=== PATIENT | female | born 1970 | race Caucasian/White ===

== ENCOUNTER 2018-09-01 16:36 | Emergency (ER) | payer SELFPAY ==
[2018-09-01 17:05] VITALS: BP 135/89; PULSE 83; RESP 14; TEMP 36.4; O2SAT 98
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
== END 2018-09-01 19:18 | disposition home or self-care (01) ==
PROVIDERS: Emergency Provider Nurse Practitioner Family; Family Provider Family Medicine; PCP Family Medicine
DX: G89.29 Other chronic pain (principal); Z53.20 Procedure and treatment not carried out because of patient's decision for unspecified reasons
CPT/HCPCS: 99281; 99283